=== PATIENT | male | born 1950 ===

== ENCOUNTER → 2017-06-21 | Day surgery (SDC) | payer BC ==
[2017-06-07 08:58] VITALS: Ht 167.6 cm; Wt 84.1 kg
[~2017-06-21] VITALS: Ht 167.6 cm; Wt 84.1 kg
[~2017-06-21] MED LIST: 500ML BSSPLUS 0.5ML EPI1:1000 IRRIG ONE; ACETAMINOPHEN 325 MG TAB PO PRN; AMLO-114 PO; ASPI-435 PO; ATROPINE SULFATE 0.1 MG/ML 5ML SYR IV PRN; ATROPINE SULFATE 1% OP OINT PER APPLICATION CHARGE ONE; BSS FLUSH ONE; BUPIVACAINE HCL 0.75% 10 ML AMP/VIAL ONE; CEFAZOLIN SOD 1 GM VIAL ONE; CLON0.1T12 PO; DEXAMETHASONE SOD INJ 4 MG/ML VIAL ONE; EpHEDrine SULFATE INJ 50 MG/ML AMP IV PRN; EpINEphrine INJ 1MG/ML AMP 1 MG/ML AMP ONE; FENTANYL CITRATE INJ 50 MCG/1 ML 2 ML VIAL ONE; HYALURONIDASE HUMAN 150 UNIT/ML INJ ONE; INDOCYANINE GREEN 25 MG/10 ML ONE; LACTATED RINGER'S 1000ML 500 ML IV SCH; LEVO50TA6 PO; LIDOCAINE HCL 2% 2 ML VIAL (20MG/ML) ONE; LIDOCAINE MPF 4% INJ INJ ONE; LISI-787 PO; MIDAZOLAM HCL 1 MG/ML 2ML VIAL ONE; NEOMYCIN/POLYMYX/DEXAMETH OP OINT PER APP CHARGE ONE; OCUCOAT 1 ML SOLN IO ONE; ONDANSETRON INJ 2 MG/ML 2 ML VIAL ONE; POVIDONE-IODINE OP SOLN (SURGERY CNTR CHARGING ONLY) ONE; PROPARACAINE 0.5% OP SOLN PER DROP CHARGE OPL SCH; PROPOFOL IV EMULSION 10 MG/ML 20 ML VIAL IV ONE; SITA50TA3 PO; TIMOLOL MALEATE 0.5% OP SOLN PER DROP CHARGE ONE
[2017-06-21] MEDS: PHENYLEPHRINE HCL 2.5% OP SOLN PER DROP CHARGE OPL SCH ×2 (07:07→07:12)
[2017-06-21] MEDS: TROPICAMIDE 1% OP SOLN PER DROP CHARGE OPL SCH ×2 (07:08→07:13)
--- NOTE | 2017-06-21 07:52 | History & Physical Bridge - [place] ---
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 I have examined the patient, reviewed the History & Physical and in the interval since the performance of the History & Physical I have noted the following changes of clinical significance: No changes noted
[2017-06-21 08:46] VITALS: TEMP 36.7
--- NOTE | 2017-06-21 08:46 | Discharge Instructions-SurgCtr ---
Discharge Instructions Date of Service Jun 21, 2017. Visit Reason for Visit: Left Eye Diabetic Retinopathy Discharge Discharge Diagnosis / Problem: same Discharge Goals Goal(s): Improve function Activity Recommendations Activity Limitations: per Instructions/Follow-up section Anesthesia . Post Anesthesia Instructions: If you have had General Anesthesia or IV Sedation: * Do not drive today. * Resume driving when surgeon permits. * Do not make important decisions or sign legal documents today. * Call surgeon for: 1. Temperature elevations greater than 101 degrees F. 2. Uncontrollable pain. 3. Excessive bleeding. 4. Persistent nausea and vomiting. 5. Medication intolerance (nausea, vomiting or rash). * For nausea and vomiting use only clear liquids such as: tea, soda, bouillon until nausea subsides, then gradually increase diet as tolerated. * If you have any concerns or questions, call your surgeon's office. If physician is unavailable and it is an emergency, call 911 or go to the nearest emergency room. . Instructions / Follow-Up Instructions / Follow-Up * May take Tylenol if needed for discomfort. * Do NOT remove eye shield. * NO straining, heavy lifting (>15 pounds) or bending below waist. * Avoid getting water or soap directly into operative eye. * Do NOT rub eye. If you experience increasing eye pain not relieved by medication, please contact us immediately at [phone]. If you are unable to reach someone at the above number, call [phone] and ask to speak with the EYE DOCTOR MINE SUPERVISOR. Inform them that you are a Dr. Judge patient who had recent surgery. Diet Recommendations Home Diet: resume previous diet Procedures Procedures Performed: Left Eye 23 Gauge Vitrectomy, Membrane Peeling, Endolaser Pending Studies Studies pending at discharge: no Medical Emergencies . Who to Call and When: Medical Emergencies: If at any time you feel your situation is an emergency, please call 911 immediately. . Non-Emergent Contact Non-Emergency issues call your: [facility] [employer] . . "Provider Documentation" section prepared by Nick Judge. .
--- NOTE | 2017-06-21 08:46 | [facility] Operative Report ---
Operative Report Date of Service Jun 21, 2017. Operative Report PREOPERATIVE DIAGNOSIS: Diabetic retinopathy with vitreous hemorrhage, epiretinal membrane, left eye. POSTOPERATIVE DIAGNOSIS: same. PROCEDURE: 1. Pars plana vitrectomy, 23 gauge. 2. Membrane peeling. 3. Endolaser. All to the left eye. CPT CODE: 05695 SURGEON: Nick Judge D.O. COMPLICATIONS: None. ESTIMATED BLOOD LOSS: None. SPECIMENS: None. ANESTHESIA: Retrobulbar block and MAC INDICATIONS FOR PROCEDURE: Surgery is indicated to decrease risk of vision loss and potentially improve vision. CONSENT: The risks, benefits and alternatives were discussed with the patient including but not limited to decreased visual acuity, failure to achieve desired results, loss of the eye, infection, pain, glaucoma, lens changes, retinal tears, retinal detachment, the need for more procedures, drooping of the eyelid, blindness, and double vision. The patient is aware of risks and consents to the surgery. Consent is signed and on the chart. OPERATION AND FINDINGS: The patient was brought to the operating room where the patient was identified by name, date, and medical record number. The surgical site was confirmed with the informed written consent. The patient was sedated by the anesthesiology team after which a 50:50 mixture of 4% lidocaine and 0.75% bupivacaine with hyaluronidase was administered in a standard retrobulbar fashion. A total of 4 ml was administered without difficulty. The patient was then prepped and draped in the usual sterile manner for retinal surgery. A wire lid speculum was placed and an Sebastian 23-gauge trocar cannula system was employed. The inferior temporal trocar cannula was first placed in an angled fashion 3.75mm posterior to the surgical limbus and the infusion cannula was inserted into this cannula after which the intravitreal position was verified prior to turning the infusion on. Two more trocar cannulas were then inserted in an angled fashion, one in the superior temporal, and one in the superior nasal quadrant both 3.75mm posterior to the surgical limbus. A light pipe and vitrector were then introduced into the eye and the BIOM wide angle viewing system was brought into place. Posterior inspection revealed partially regressed proliferative diabetic retinopathy with neovascularization tags superior and inferior to the temporal arcades. There was also noted well placed previous laser treatment. Standard core vitrectomy was performed. The vitreous was insured to be totally detached from the posterior pole with the aid of the vitrector. the areas of regressed neovascularization were segmented with the vitrector. Endolaser was used to perform fill-in kennedy retinal photocoagulation. Next 0.05ml of indocyanine green was placed over the macular surface to stain the internal limiting membrane and reverse stain the overlying epiretinal membrane. This was washed from the eye after 20 seconds. At this point a flat contact lens was placed on the surface of the eye and a flex loop and ILM forceps were used to gently peel the internal limiting membrane and overlying epiretinal membrane off of the macular surface without difficulty. At this point scleral depression was performed for 360 degrees and no retinal tears or detachments were noted. The trocar cannulas were then removed and found to be water tight. The intraocular pressure was found to be within normal limits by palpation and subconjunctival injections of Kefzol and dexamethasone were administered inferiorly and superiorly. The wire lid speculum was removed. Maxitrol and timolol were applied to the surface of the eye. A light patch and shield were taped over the surface of the eye and the patient left the Operating Room in stable condition having tolerated the procedure well. DISPOSITION: The patient has an appointment the following morning in the Ophthalmology Clinic. The patient is to call immediately if there are any problems overnight. I attest to the content of the Intraoperative Record and any orders documented therein. Any exceptions are noted below.
--- NOTE | 2017-06-21 08:57 | Anesthesia Progress Nt - [facility] ---
Anesthesia Post Op Note Date & Time Jun 21, 2017 at 08:56 Vital Signs Pain Intensity: 0 Vital Signs Past 12 Hours Date Time Temp Pulse Resp B/P (MAP) Pulse Ox O2 Delivery O2 Flow Rate FiO2 06/21/17 07:00 36.5 97 16 190/83 (118) 98 Room Air Notes Mental Status: alert / awake / arousable, participated in evaluation Pt Amnestic to Procedure: Yes Nausea / Vomiting: adequately controlled Pain: adequately controlled Airway Patency, RR, SpO2: stable & adequate BP & HR: stable & adequate Hydration State: stable & adequate Anesthetic Complications: no major complications apparent
[2017-06-21 09:09] VITALS: BP 176/91; PULSE 81; O2SAT 98
== END | disposition home or self-care (01) ==
LOC: X.SURG 06:41
PROVIDERS: ATTEND Ophthalmology
DX: E11.3512 Type 2 diabetes mellitus with proliferative diabetic retinopathy with macular edema, left eye (principal); H43.12 Vitreous hemorrhage, left eye; I10 Essential (primary) hypertension; E78.5 Hyperlipidemia, unspecified; E66.9 Obesity, unspecified; Z79.82 Long term (current) use of aspirin; Z79.84 Long term (current) use of oral hypoglycemic drugs; Z79.899 Other long term (current) drug therapy